=== PATIENT | female | born 2000 | race Hispanic/Latino ===

== ENCOUNTER 2025-04-30 08:23 | Emergency (ER) | payer MEDICAID ==
[~2025-04-30] VITALS: Ht 152.4 cm; Wt 70.3 kg
[2025-04-30 08:46] VITALS: TEMP 97.9
--- NOTE | 2025-04-30 09:15 | NUR ---
PELVIC EXAMOINATION PERFORMED BY DR VARGHESE WETZEL.PT TOLERATED PROCEDURE WELL. NEW SANITARY PAD AND WIPES SUPPLIED FOR PATIENT,SHE WANTED TO GET CHANGED AND CLEANED UP WITHOUT ASSISTANCE.
--- NOTE | 2025-04-30 09:19 | ERN ---
ED Note History of Present Illness Stated Complaint: TAMPON STUCK IN VAGINA Chief Complaint: Foreign Body Time Seen by MD: 08:41 Dictation: 24-year-old female believes that of tampons no stuck in her vagina, no pain or bleeding but reports that she only pulled the string out this morning unsure if it is still inside Allergies: Coded Allergies: No Known Allergies (Unverified Allergy, Unknown, 04/30/25) Past Medical History Past Medical History: No Pertinent History Surgical History: LMP: Apr 28, 2025 Review of System Dictation Constitutional: Negative for fever,chills, and weight loss Eyes: Negative for injury, pain,redness, and discharge ENT: Negative for injury,pain or swelling Cardiovascular: Negative for chest pain, palpitations, and edema Respiratory: Negative for shortness of breath, cough, and wheezing, Abdomen/GI: Negative for abdominal pain, nausea, vomiting, diarrhea, and constipation Back: Negative for injury and pain : Per HPI MS/Extremity: Negative for injury and deformity Skin: Negative for rash, and discoloration Neuro: Negative for headache, weakness, numbness, tingling, and seizure Initial Vital Sign VS Vital Signs Date Time Temp Pulse Resp B/P (MAP) Pulse Ox O2 Delivery O2 Flow Rate FiO2 04/30/25 08:25 97.9 97 16 117/87 97 Room Air 0 04/30/25 08:46 21 Physical Exam Dictation General: awake, alert, NAD Head/Face: Normocephalic, atraumatic Eyes: PERRL, EOMI, vision at baseline ENT: oral cavity clear, TMs clear, no signs of infection Neck: Trachea midline, supple, no nuchal rigidity Cardiovascular: RRR, normal S1/S2, No MRGs, no JVD Respiratory: CTAB, no respiratory distress, No rales or wheezes Abdomen: Soft, non-tender, non-distended, normal bowel sounds, no guarding or rebound. with resident physician at bedside -no foreign body object noted with speculum exam Skin: Warm, dry, normal turgor, no rash MS/Extremity: Pulses equal, no cyanosis, neurovascular intact, FROM Neuro: COAx4, GCS 15, strength 5/5, CN 2-12 intact, normal cerebellar exam, normal gait, Psych: Normal behavior, mood, and affect normal ED Course ED Course Vital Signs Date Time Temp Pulse Resp B/P (MAP) Pulse Ox O2 Delivery O2 Flow Rate FiO2 04/30/25 08:46 97.9 97 16 117/87 97 Room Air* 0 21 04/30/25 08:25 97.9 97 16 117/87 97 Room Air 0 Medical Decision Making MDM MDM: Differential diagnosis: Rationale: Tests considered and ordered secondary to shared decision making include: Previous outside records reviewed: Old ER visits. Risk of complication and/or morbidity or mortality of patient management: None Medications-Per medication reconciliation Need for hospitalization: Patient does not meet criteria for hospitalization. Need for emergency major/minor surgery: No There are no social concerns with this patient. Prescription drug management Prescriptions will include symptomatic care Patient's prior external medical records from other ER visits were reviewed by me as indicated. Prior testing and results from previous visits were reviewed. Prior tests were taken into account with medical decision making and resource utilization, independent historian/historians were used to obtain complete medical history. I independently interpreted the test that were performed, results were reviewed by me and considered findings on radiology if ordered. Medical management and examination interpretation discussions were had by me with other qualified healthcare professionals as indicated for the patient's care. DX & DISP Disposition: Discharge Departure Impression: Primary Impression: Foreign body in vagina Condition: Stable Referrals: OTONIEL MILNER MD (PCP) RAS VILLEGAS MD Apr 30, 2025 09:19
[2025-04-30 09:30] VITALS: BP 115/85; PULSE 85; RESP 16; O2SAT 98
== END 2025-04-30 09:48 | disposition home or self-care (01) ==
LOC: EDH 08:23
DX: T19.2XXA Foreign body in vulva and vagina, initial encounter (principal); W44.8XXA Other foreign body entering into or through a natural orifice, initial encounter; Y93.89 Activity, other specified; Y92.89 Other specified places as the place of occurrence of the external cause; Y99.8 Other external cause status
CPT/HCPCS: 99284